=== PATIENT | male | born 1950 | race African-American/Black ===

== ENCOUNTER 2016-12-06 20:29 | Emergency (ER) | payer SELFPAY ==
[~2016-12-06] VITALS: Ht 180.3 cm; Wt 82.0 kg
[2016-12-06 23:11] LABS: CHLORIDE 116 mEq/L (98-107)
[2016-12-06 23:13] LABS: BASOPHILS % 0.3 % (0.0-2.0); EOSINOPHILS % 1.1 % (0.0-5.0); HEMATOCRIT. 37.5 % (42.0-52.0); HEMOGLOBIN. 12.9 g/dL (14.0-18.0); LYMPHOCYTES % 26.3 % (20.0-50.0); MEAN CORPUSCULAR HEMOGLOBIN 30.1 pg (28.0-32.0); MEAN CORPUSCULAR VOLUME 87.7 fL (80.0-94.0); MEAN PLATELET VOLUME 9.5 fl (7.4-10.4); MONOCYTES % 13.2 % (2.0-8.0); NEUTROPHILS % 59.1 % (40.0-76.0); PLATELET 156 x1000/uL (130-400); RED BLOOD CELL COUNT 4.28 mill/uL (4.7-6.1); RED CELL DISTRIBUTION WIDTH 13.5 % (11.6-14.6)
[2016-12-06 23:15] LABS: CARBON DIOXIDE 26 mEq/L (21-32)
[2016-12-06 23:16] LABS: ETHANOL BLOOD < 10 mg/dL
[2016-12-07 00:14] LABS: CLARITY URINE CLEAR (CLEAR); COLOR URINE YELLOW (YELLOW); GLUCOSE URINE TRACE (NEGATIVE); KETONES URINE TRACE (NEGATIVE); LEUKOCYTE ESTERASE URINE NEGATIVE (NEGATIVE); NITRITE URINE NEGATIVE (NEGATIVE); OCCULT BLOOD URINE NEGATIVE (NEGATIVE); PROTEIN URINE NEGATIVE (NEGATIVE); SPECIFIC GRAVITY URINE 1.031 (1.005-1.030); UROBILINOGEN URINE 0.2 E.U./dL (0.2-1.0)
[2016-12-07 00:30] LABS: *AMPHETAMINES SCREEN URINE NEGATIVE (NEGATIVE); *BARBITURATES SCREEN URINE NEGATIVE (NEGATIVE); *BENZODIAZEPINES SCREEN URINE NEGATIVE (NEGATIVE); *COCAINE SCREEN URINE NEGATIVE (NEGATIVE); CANNABINOID URINE SCREEN NEGATIVE (NEGATIVE); METHADONE URINE SCREEN NEGATIVE (NEGATIVE); OPIATES URINE SCREEN NEGATIVE (NEGATIVE); PHENCYCLIDINE URINE SCREEN NEGATIVE (NEGATIVE)
[2016-12-07] MEDS ORDERED: DIPHENHYDRAMINE 50MG CAPSULE PO ONE (03:00)
[2016-12-07 10:30] VITALS: BP 160/97
== END 2016-12-07 12:41 | disposition home or self-care (01) ==
LOC: ER 20:58
DX: G93.40 Encephalopathy, unspecified (principal); F03.90 Unspecified dementia, unspecified severity, without behavioral disturbance, psychotic disturbance, mood disturbance, and anxiety
CPT/HCPCS: 36415; 70450; 80053; 80305; 80307; 80329; 81001; 85025; 87086; 93005; 99285; G0482; Z7610; 81003; Q0163

== ENCOUNTER 2018-05-04 13:09 | Emergency (ER) | payer MEDICARE ==
[~2018-05-04] VITALS: Ht 172.7 cm; Wt 75.0 kg
[2018-05-04 17:29] VITALS: BP 165/83
== END 2018-05-04 17:31 | disposition home or self-care (01) ==
LOC: ER 13:09
DX: T65.893A Toxic effect of other specified substances, assault, initial encounter (principal); F03.90 Unspecified dementia, unspecified severity, without behavioral disturbance, psychotic disturbance, mood disturbance, and anxiety; Y92.89 Other specified places as the place of occurrence of the external cause
CPT/HCPCS: 99283